=== PATIENT | female | born 1955 ===

== ENCOUNTER 2016-12-03 07:05 | Day surgery (SDC) | payer BC ==
[2016-12-03] VITALS (7 sets, daily range): BP systolic 130–141; BP diastolic 72–78
[~2016-12-03] VITALS: Ht 170.2 cm; Wt 57.6 kg
[~2016-12-03 07:05] MED LIST: LR 1000ml 1,000 ML IVLG SCH
--- NOTE | 2016-12-03 07:41 | Anethesia Preoperative Eval ---
Anesthesia Pre-op PMH/ROS General Date of Evaluation: Dec 03, 2016 Time of Evaluation: 07:40 Anesthesiologist: thao ASA Score: ASA 2 Mallampati Score Class I : Soft palate, uvula, fauces, pillars visible Class II: Soft palate, uvula, fauces visible Class III: Soft palate, base of uvula visible Class IV: Only hard plate visible Mallampati Classification: Class II Surgeon: matthieu Diagnosis: noplams of colon Surgical Procedure: colonoscopy Anesthesia History: none Social History: smoking - nonsmokr Allergies: Coded Allergies: No Known Allergies (Unverified , 12/02/16) Medications: see eMAR Past Medical History Cardiovascular: Reports: arrhythmia - bradycardia Neurologic/Psychiatric: Reports: other - concussion Anesthesia Pre-op Phys. Exam Physician Exam Constitutional: NAD Neurologic: CN 2-12 intact Cardiovascular: no M/R/G Respiratory: CTA Gastrointestinal: S/NT/ND Airway Exam Mallampati Score: Class II MO: full Neck: supple TMD: 2fb ROM: full Teeth: intact Anesthesia Pre-op A/P Risk Assessment & Plan Assessment: asa2 Plan: mac Status Change Before Surgery: No Pre-Antibiotics Drug: ROMEL Echols Dec 03, 2016 07:41
[2016-12-03] MEDS ORDERED: Lidocaine 1% MPF 10mg/ml 5ml ONE (07:45)
[2016-12-03] MEDS ORDERED: Propofol 200mg/20ml IV ONE (07:45)
[2016-12-03] MEDS ORDERED: LR 1000ml ONE (07:45)
[2016-12-03] MEDS ORDERED: PREMARIN0.9 MG ORAL (07:47)
--- NOTE | 2016-12-03 08:06 | General Progress Note ---
Subjective Allergies: Coded Allergies: No Known Allergies (Unverified , 12/02/16) Subjective See typed H&P Objective Last 24 Hour Vital Signs Date Time Temp Pulse Resp B/P (MAP) Pulse Ox O2 Delivery O2 Flow Rate FiO2 12/03/16 07:55 98.3 50 19 136/76 98 Room Air Height (Feet): 5 Height (Inches): 7.00 Weight (Pounds): 127 JON DOTY Dec 03, 2016 08:06
[2016-12-03] MEDS ORDERED: LR 1000ml 1,000 ML IVLG SCH (08:07)
--- NOTE | 2016-12-03 08:07 | Pre-Procedure Note/Attestation ---
Pre-Procedure Note/Attestation Complete Prior to Procedure Planned Procedure: not applicable Procedure Narrative: colonoscopy Indications for Procedure Pre-Operative Diagnosis: screening Attestation I attest that I discussed the nature of the procedure; its benefits; risks and complications; and alternatives (and the risks and benefits of such alternatives ), prior to the procedure, with the patient (or the patient's legal apparel trimmings sales representative). I attest that, if there was a reasonable possibility of needing a blood transfusion, the patient (or the patient's legal apparel trimmings sales representative) was given the [facility] standardized written summary, pursuant to the [employer] Blood Safety Act ([place] Health and Safety Code # 1645, as amended). I attest that I re-evaluated the patient just prior to the surgery and that there has been no change in the patient's H&P, except as documented below: JON DOTY Dec 03, 2016 08:07
[2016-12-03] MEDS ORDERED: Midazolam 2mg/2ml Inj IVP PRN (08:15)
[2016-12-03] MEDS ORDERED: Hydromorphone 0.5mg/0.5ml inj IVP PRN (08:15)
[2016-12-03] MEDS ORDERED: DiphenhydrAMINE 50mg/ml Inj IVP PRN (08:15)
[2016-12-03] MEDS ORDERED: Atropine Inj 1mg/10ml Syr IV PRN (08:15)
--- NOTE | 2016-12-03 08:45 | Endoscopy Procedure Note ---
Endoscopy Procedure Note Indication for Procedure: screen Procedures Performed: colonoscopy Operative Findings/Diagnosis: melanosis, descending polyp Specimen: yes Pt Tolerated Procedure Well: Yes Estimated Blood Loss: none Anesthesiologist: see report Anesthesia: MAC Medication Given: see anesthesia record Implant(s) used?: No 50 yrs or older w/o bx or poly: Not Applicable 10yrs. F/U not recommended: No If not recommended, why?: Inadequate Prep 10 yrs. F/U needed: No 18 years or older w/prev. colo: Yes Med reason:<3 yrs.: Inadequate Prep System Reason:<3 yrs.: Last colonoscopy >= to 3yrs: Yes JON DOTY Dec 03, 2016 08:45
--- NOTE | 2016-12-03 08:51 | Immediate Post-Op Evaluation ---
Immediate Post-Op Evalulation Immediate Post-Op Evalulation Procedure: colonoscopy Date of Evaluation: Dec 03, 2016 Time of Evaluation: 08:49 IV Fluids: 500ml 0.9ns Blood Products: none Estimated Blood Loss: negligible Blood Pressure Systolic: 132 Blood Pressure Diastolic: 78 Pulse Rate: 47 Respiratory Rate: 18 O2 Sat by Pulse Oximetry: 100 Temperature (Fahrenheit): 97.1 Pain Score (1-10): 0 Nausea: No Vomiting: No Complications none Patient Status: awake, reacts, patent Hydration Status: adequate Drug: ROMEL Echols Dec 03, 2016 08:51
--- NOTE | 2016-12-03 08:53 | 48 Hour Post Anesthesia Eval ---
Post Anesthesia Evaluation Procedure: colonoscopy Date of Evaluation: Dec 03, 2016 Time of Evaluation: 08:51 Blood Pressure Systolic: 132 0: 74 Pulse Rate: 50 Respiratory Rate: 18 Temperature (Fahrenheit): 97.1 O2 Sat by Pulse Oximetry: 100 Airway: patent Nausea: No Vomiting: No Pain Intensity: 0 Hydration Status: adequate Cardiopulmonary Status: stable Mental Status/LOC: patient returned to baseline Post-Anesthesia Complications: none Follow-up care needed: N/A ROMEL LAWRENCE Dec 03, 2016 08:53
--- NOTE | 2016-12-04 10:45 | Procedure Note ---
DATE OF PROCEDURE: 12/03/2016 GASTROLOGY PROCEDURE NOTE NAME OF THE PROCEDURE: Screening colonoscopy with biopsy. SURGEON: Laron Conde M.D. ANESTHESIA: Please see the separate anesthesiologist notes for details. PRE-ENDOSCOPIC DIAGNOSIS: Need for screening colonoscopy. POST-ENDOSCOPIC DIAGNOSES: 1. Diffuse melanosis coli. 2. Two diminutive polyps seen in the distal descending colon at 35 centimeters, which were removed with biopsy forceps and sent to pathology for review. DESCRIPTION OF PROCEDURE: The procedure, its risks, indications, alternatives, and possible complications were explained to the patient and informed consent was obtained. The patient was then sedated in the left lateral decubitus position and a rectal exam was done, which was unremarkable. The colonoscope was then introduced in the rectum and advanced to the terminal ileum without difficulty. The terminal ileum was normal, but the colonic mucosa diffusely showed melanosis coli. There were two diminutive polyps measuring 2 to 4 mm in the distal descending colon at 35 centimeter arturo, which were biopsied and sent in the same bottle for pathology. Retroflexed view of the rectum was unremarkable. The colonoscope was removed and the patient was sent to recovery in good condition. COMPLICATIONS: None. RECOMMENDATIONS: 1. Followup biopsy results. 2. Outpatient followup. 3. Discuss bowel regimen at the next visit. Laron Conde M.D. DR: Edgar JOB#: [id number] CC: Laron Conde M.D.; Fax#: [phone] Sheth M.D. [facility]ITAL[facility]
== END 2016-12-03 10:00 | disposition home or self-care (01) ==
LOC: GAS 07:05
DX: Z12.11 Encounter for screening for malignant neoplasm of colon (principal); D12.4 Benign neoplasm of descending colon; K63.89 Other specified diseases of intestine; R00.1 Bradycardia, unspecified
CPT/HCPCS: 45380; J2704; J7120; 94003; 94150